=== PATIENT | male | born 1995 | race Hispanic/Latino ===

== ENCOUNTER 2019-10-24 01:49 | Emergency (ER) | payer SELFPAY ==
[2019-10-24] MEDS ORDERED: OCTYL 2-CYANOACRYLATE 1 EACH TP ONE (02:04)
== END 2019-10-24 03:09 | disposition home or self-care (01) ==
LOC: EDH 01:49
DX: S61.512A Laceration without foreign body of left wrist, initial encounter (principal); X78.8XXA Intentional self-harm by other sharp object, initial encounter; Y93.89 Activity, other specified; Y92.098 Other place in other non-institutional residence as the place of occurrence of the external cause; Y99.8 Other external cause status